=== PATIENT | male | born 1985 | race Two or more races ===

== ENCOUNTER 2016-10-08 08:32 | Emergency (ER) | payer SELFPAY ==
[~2016-10-08] VITALS: Ht 162.6 cm; Wt 67.7 kg
[2016-10-08] MEDS ORDERED: KETOROLAC 30 MG/1 ML ONE (09:25)
[2016-10-08] MEDS ORDERED: KETOROLAC 30 MG/1 ML IM ONE (09:30)
[2016-10-08 09:56] LABS: ASPARTATE AMINO TRANSFERASE 20 U/L (15-37); BLOOD UREA NITROGEN 17 mg/dL (7-18)
[2016-10-08 10:32] VITALS: BP 115/75
== END 2016-10-08 11:08 | disposition home or self-care (01) ==
LOC: ED 10:33
DX: K40.91 Unilateral inguinal hernia, without obstruction or gangrene, recurrent (principal)
CPT/HCPCS: 36415; 74000; 76870; 80053; 81001; 85025; 87086; 96372; 99285; J1885